=== PATIENT | female | born 1995 | race African-American/Black ===

== ENCOUNTER → 2020-11-03 | Outpatient (CLI) | payer OTHER | LOC: MHCPAIN 10:47 | DX: M47.817 Spondylosis without myelopathy or radiculopathy, lumbosacral region (principal); M54.5 Low back pain; M53.3 Sacrococcygeal disorders, not elsewhere classified; G89.29 Other chronic pain | CPT/HCPCS: G0463 ==

== ENCOUNTER → 2020-11-11 | Outpatient (CLI) | payer OTHER | LOC: MHCPAIN 08:34 | DX: M47.818 Spondylosis without myelopathy or radiculopathy, sacral and sacrococcygeal region (principal); M53.3 Sacrococcygeal disorders, not elsewhere classified | CPT/HCPCS: G0260; J1040; Q9967 ==

== ENCOUNTER → 2020-11-22 | Outpatient (CLI) | payer OTHER | LOC: MHCPAIN 09:06 | DX: M47.817 Spondylosis without myelopathy or radiculopathy, lumbosacral region (principal); M53.3 Sacrococcygeal disorders, not elsewhere classified; M54.5 Low back pain; G89.29 Other chronic pain | CPT/HCPCS: G0463 ==

== ENCOUNTER → 2020-11-25 | Outpatient (CLI) | payer OTHER | LOC: MHCPAIN 12:36 | DX: M47.817 Spondylosis without myelopathy or radiculopathy, lumbosacral region (principal); M54.5 Low back pain; M53.3 Sacrococcygeal disorders, not elsewhere classified ==

== ENCOUNTER → 2020-12-07 | Outpatient (CLI) | payer OTHER | LOC: MHCPAIN 14:39 | DX: M47.816 Spondylosis without myelopathy or radiculopathy, lumbar region (principal); M53.3 Sacrococcygeal disorders, not elsewhere classified; G57.01 Lesion of sciatic nerve, right lower limb; G89.29 Other chronic pain | CPT/HCPCS: G0463 ==

== ENCOUNTER → 2020-12-20 | Outpatient (CLI) | payer OTHER | LOC: MHCPAIN 15:10 | DX: M62.838 Other muscle spasm (principal); G57.01 Lesion of sciatic nerve, right lower limb; M53.3 Sacrococcygeal disorders, not elsewhere classified | CPT/HCPCS: J1040 ==

== ENCOUNTER → 2021-01-17 | Outpatient (CLI) | payer OTHER | LOC: MHCPAIN 10:41 | DX: M47.816 Spondylosis without myelopathy or radiculopathy, lumbar region (principal); M53.3 Sacrococcygeal disorders, not elsewhere classified; M54.16 Radiculopathy, lumbar region; G89.29 Other chronic pain | CPT/HCPCS: G0463 ==

== ENCOUNTER 2022-04-14 10:33 | Day surgery (SDC) | payer OTHER ==
[2022-04-14 10:35] VITALS: BP 110/73; PULSE 100; TEMP 97.8
--- NOTE | 2022-04-14 11:58 | NUR ---
Darrion Sky CRNA notified of last NPO status. Surgery will need to be delayed until 1400. Dr. Ford notified. Patient will be rescheduled and cancelled for today.
--- NOTE | 2022-04-14 12:05 | NUR ---
La MILES from Dr. Ford's office called and talked with patient re: need to reschedule surgery. Patient and spouse both agree to this. Office will call patient with reschedule date and time. IV discontinued and site is free of redness. Patient dresses self.
--- NOTE | 2022-04-14 12:07 | NUR ---
Patient dismissed to home driven by spouse.
== END 2022-04-14 12:07 | disposition home or self-care (01) ==
LOC: SDCO 10:33
DX: K80.50 Calculus of bile duct without cholangitis or cholecystitis without obstruction (principal); Z53.8 Procedure and treatment not carried out for other reasons
CPT/HCPCS: J0690; J1100; J2405; J2704; J3010; J7120

== ENCOUNTER 2022-04-17 09:46 | Day surgery (SDC) | payer OTHER ==
[2022-04-17] VITALS (7 sets, daily range): BP systolic 95–115; BP diastolic 53–67; PULSE 74–87; TEMP 98–99.1
[~2022-04-17] VITALS: Ht 167.6 cm; Wt 59.5 kg
[2022-04-17] MEDS ORDERED: NORCO 325 MG-51 TAB PO ×5 (10:50→19:07)
[2022-04-17] MEDS ORDERED: MOTRIN 600600 MG/TAB PO ×5 (10:50→19:07)
--- NOTE | 2022-04-17 11:14 | NUR ---
Pt does not take any home medications. Unable to complete medication reconciliation-already finalized by Dr Ford.
--- NOTE | 2022-04-17 14:55 | NUR ---
Pt returned via cart to bay [facility]. Pts present upon return. X4 surgical sites noted clean, dry and intact with exofin to abdomen. VSS-documented. Side rails up, call light in reach. Pt c/o pain. Will review prn medication.
--- NOTE | 2022-04-17 15:15 | NUR ---
Pt given prn pain medication-see NOV. Now resting and appears relaxed. Pt Sp02 dropped after fentanyl admin. 1.5L 02 via NC applied. Pt easily arousable and reports pain has "improved some". Denies other needs or complaints at this time.
--- NOTE | 2022-04-17 15:54 | NUR ---
Pt given zofran per orders for c/o nausea. No emesis but given sick bag and HOB elevated. Pt says she did tolerate a few ice chips. Reports pain did not change much and was given dilaudid per orders-See MAR. Denies other needs or complaints. VS remain stable. at bedside.
--- NOTE | 2022-04-17 17:40 | NUR ---
Pt had pain and nausea relief with prns administered per orders-see NOV. VS remain stable. Able to void and tolerate oral intake. Surgical sites remain c/d/i. IV removed, pressure dressing applied. Pt dressed. DC teaching completed, pt and pts verbalized understanding. Pt taken via wheelchair to private vehicle for dc home with driving. Pt left with all personal belongings, f/u appt card, rx's sent electronically to [facility] and dc instruction packet.
== END 2022-04-17 17:45 | disposition home or self-care (01) ==
LOC: SDCO 09:46
DX: K81.1 Chronic cholecystitis (principal)
CPT/HCPCS: J0330; J0690; J1100; J1170; J2250; J2370; J2405; J2550; J2704; J3010; Q9967

== ENCOUNTER 2022-05-13 21:05 | Emergency (ER) | payer OTHER ==
[~2022-05-13] VITALS: Ht 167.6 cm; Wt 57.3 kg
[~2022-05-13 21:05] MED LIST: MOTRIN 600600 MG/TAB PO; NORCO 325 MG-51 TAB PO
[2022-05-13 21:20] VITALS: TEMP 98.5
[2022-05-13] MEDS ORDERED: ALLEGRA 60MG TA60 MG PO (21:34)
[2022-05-13 22:01] LABS: BASO # 0.1 K/mm3 (0.0-0.2); BASO % 1.2 % (0.0-2.0); EOS % 15.2 % (0.0-4.0); GRAN # 1.9 K/mm3 (1.4-6.5); GRAN % 29.2 % (42.2-75.2); HEMATOCRIT 41.4 % (37.0-47.0); HEMOGLOBIN 13.8 g/dl (12.5-16.0); LYMPH # 3.1 K/mm3 (1.2-3.4); LYMPH % 46.7 % (20.0-51.0); MEAN CELL VOLUME 86 fl (80.0-100.0); MEAN CORPUSCULAR HEMOGLOBIN 29 pg (27-31); MEAN CORPUSCULAR HGB CONC 33 g/dl (33.0-37.0); MEAN PLATELET VOLUME 9.2 fl (7.4-10.4); MONO # 0.5 K/mm3 (0.1-0.6); MONO % 7.5 % (1.7-9.3); PLATELET COUNT 269 K/mm3 (130-400); RED BLOOD COUNT 4.82 M/mm3 (4.10-5.30); REDCELL DISTRIBUTION WIDTH-CV 12.7 % (11.5-14.5)
[2022-05-13 22:01] LABS: COLLECTION METHOD CLEAN CATCH
[2022-05-13 22:10] LABS: MUCOUS Present (NOT PRESENT); SQUAMOUS EPITHELIAL 0-2 /hpf (0-10); URINE BACTERIA Rare /hpf (NONE SEEN); URINE RBC 0-2 /hpf (0-2)
[2022-05-13 22:11] LABS: URINE APPEARANCE Clear (CLEAR/HAZY); URINE BLOOD Negative (NEGATIVE); URINE COLOR Yellow (YELLOW); URINE GLUCOSE Negative (NEGATIVE); URINE KETONE Negative (NEGATIVE); URINE NITRATE Negative (NEGATIVE); URINE PROTEIN(semi-quant) Negative (NEGATIVE); URINE UROBILINOGEN 0.2 E.U/dL (0.2-1.0)
[2022-05-13 22:15] LABS: ALBUMIN 4.2 gm/dL (3.5-5.0); C-REACTIVE PROTEIN 0.03 mg/dL (0.00-0.50); CALCIUM 9.4 mg/dL (8.4-10.2); CREATININE, serum 0.8 mg/dL (0.57-1.11); POTASSIUM 3.9 mmol/L (3.5-4.5); TOTAL PROTEIN 7.3 gm/dL (6.2-8.1)
[2022-05-13 22:27] LABS: BILIRUBIN,TOTAL 0.2 mg/dL (0.2-1.2)
[2022-05-13] MEDS ORDERED: ZOFRAN ODT4 MG PO (22:32)
[2022-05-13 22:39] VITALS: BP 102/68; PULSE 72
== END 2022-05-13 22:46 | disposition home or self-care (01) ==
LOC: COL.ER 21:05
PROVIDERS: Physician Assistant
DX: G89.29 Other chronic pain (principal); R10.11 Right upper quadrant pain; R11.2 Nausea with vomiting, unspecified; Z90.49 Acquired absence of other specified parts of digestive tract; Z32.02 Encounter for pregnancy test, result negative
CPT/HCPCS: J2405